=== PATIENT | male | born 1995 | race Caucasian/White ===

== ENCOUNTER 2018-04-30 06:54 | Emergency (ER) | payer SELFPAY ==
[2018-04-30 06:58] VITALS: BP 135/89; PULSE 110; RESP 18; TEMP 36.1; O2SAT 95
--- NOTE | 2018-04-30 07:02 | W.ED.GENAD ---
Discharge Plan Disposition Patient Disposition: STILL A PATIENT Condition: Stable Discharge Details Chief Complaint: GenMedical Clinical Impression: Influenza Primary Care Provider: Amelia Hester ED Provider: Everette Moon Home Meds and New Rx's Prescriptions: New oseltamivir [Tamiflu] 75 mg capsule 75 mg PO BID 5 Days Qty: 10 RF: 0 ondansetron 4 mg tablet,disintegrating 4 mg PO TID PRN (Reason: nausea and vomiting) 5 Days Qty: 30 RF: 0 No Action tramadol 50 MG tablet 50 mg PO QID PRN PRNQty: 20 RF: 0 sulfamethoxazole-trimethoprim 1 TAB tablet 1 ea PO BID Qty: 20 RF: 0 Discharge Instructions Instructions: Influenza (ED) Additional Instructions: follow up with your primary care provider if not better in 1-2 weeks if you feel you are more significantly more ill return to the emergency department for reevaluation Medical Decision Making <Feroz Fan MD - Last Filed: 04/30/18 07:30> 22-year-old male presents from home with 2-1/2 days of fever chills, cough, nausea and vomiting. He is slightly tachycardic on exam. Rhonchi appreciated at left base. Differential diagnosis includes gastroenteritis, influenza, pneumonitis. Patient IV access established, given fluid bolus, Zofran, screening laboratories with flu testing and referred for chest x-ray. Patient signed out to Dr Moon at change of shift, please see his note. <Everette Moon MD - Last Filed: 04/30/18 08:57> Imaging Data Radiologic Study: Attestation: I personally reviewed and interpreted this imaging study as follows: Imaging: X-Ray Radiologist's impression: no acute findings on my read and vrad read Lab Data Lab results reviewed: Yes I reviewed the patient's lab results. HPI <Ferzo Fan MD - Last Filed: 04/30/18 07:30> General Mode of arrival: ambulatory. Date/Time Provider Initiated Documentation: 04/30/18 06:57. Limitations to Documentation: no limitations. Information obtained by: patient. History of Present Illness 22 year old M presents to the emergency department with the chief complaint of Nausea, vomiting x3 days. Cough, described as moderate, Quality is described as other (cramping), and is localized to the abdomen. Patient reports no radiation. Patient started experiencing this day(s) No relieving factors improve symptom(s), Eating worsens symptoms . Patient notes cough, fever/chills, loss of appetite, malaise and nausea/vomiting. Patient did receive the following treatments prior to arrival, none Related Data Home Medications Medication Instructions Recorded Confirmed tramadol 50 mg PO QID PRN PRN #20 tab 03/04/15 03/16/15 sulfamethoxazole-trimethoprim 1 ea PO BID #20 tab 03/16/15 ondansetron 4 mg PO TID PRN 5 Days #30 tab 04/30/18 oseltamivir [Tamiflu] 75 mg PO BID 5 Days #10 cap 04/30/18 Previous Rx's Medication Instructions Recorded tramadol 50 mg PO QID PRN PRN #20 tab 03/04/15 sulfamethoxazole-trimethoprim 1 ea PO BID #20 tab 03/16/15 ondansetron 4 mg PO TID PRN 5 Days #30 tab 04/30/18 oseltamivir [Tamiflu] 75 mg PO BID 5 Days #10 cap 04/30/18 Allergies Allergy/AdvReac Type Severity Reaction Status Date / Time No Known Allergies Allergy Unverified 03/03/15 20:02 General Stated Complaint: GenMedical SALINA: 3 Review of Systems <Feroz Fan MD - Last Filed: 04/30/18 07:30> Review of Systems 8 systems reviewed and otherwise negative PFSH <Feroz Fan MD - Last Filed: 04/30/18 07:30> Social History Smoking/Tobacco Use Status: Current-Occasional Exam <Feroz Fan MD - Last Filed: 04/30/18 07:30> Narrative Exam Narrative: GEN: awake, alert, oriented 3. Pleasant, well groomed, interactive. HEAD: Normocephalic, atraumatic ENT: Mucous membranes dry, oropharynx unremarkable, External ear exam unremarkable EYES: PERRL, EOMI NECK: Full ROM, no ANNIKA, no menigismus CHEST/RESP: Nontender, clear to auscultation bilateral, rhonchi left base CARDIOVASCULAR: borderline tachycardia, no murmur, rub jaye. 2+ Rad pulse bilateral ABDOMEN: Soft, nontender, no mass. +Bowel sounds EXT: Full ROM, no edema, no rash Neuro: Grossly normal neurologic exam, conversant, interactive. Psych: Speech fluent, thoughts congruent, affect normal Course <Feroz Fan MD - Last Filed: 04/30/18 07:30> Vital Signs Temperature 36.1 C L 04/30/18 06:58 Pulse 110 H 04/30/18 06:58 Respiratory Rate 18 04/30/18 06:58 Blood Pressure 135/89 04/30/18 06:58 Pulse Oximetry 95 04/30/18 06:58 Temperature 36.1 C L 04/30/18 06:58 Temperature Source Temporal Artery Scan 04/30/18 06:58 Pulse 110 H 04/30/18 06:58 Respiratory Rate 18 04/30/18 06:58 Blood Pressure 135/89 04/30/18 06:58 Blood Pressure Position Sitting 04/30/18 06:58 Pulse Oximetry 95 04/30/18 06:58 Oxygen Delivery Method Room Air 04/30/18 06:58 Oxygen Flow Rate 0 04/30/18 06:58 Sign Out <Feroz Fan MD - Last Filed: 04/30/18 07:30> Sign Out Data: Sign Out Comment: Followup labs/fluids/XR Last updated by Feroz Fan MD at 04/30/18 07:41 Post-Handoff Eval: pt's labs positive for influenza, otherwise unremarkable. He did state he felt some shortness of breath which improved with a neb, had mild wheezing that has resolved now. His vital signs are normal, tolerating PO and is stable for d/c home. Return precautions given
--- NOTE | 2018-04-30 07:06 | ED.GENADUL_ITS ---
Discharge Plan Disposition Patient Disposition: STILL A PATIENT Condition: Stable Discharge Details Chief Complaint: GenMedical Clinical Impression: Influenza Primary Care Provider: Amelia Hester ED Provider: Everette Moon Home Meds and New Rx's Prescriptions: New oseltamivir [Tamiflu] 75 mg capsule 75 mg PO BID 5 Days Qty: 10 RF: 0 ondansetron 4 mg tablet,disintegrating 4 mg PO TID PRN (Reason: nausea and vomiting) 5 Days Qty: 30 RF: 0 No Action tramadol 50 MG tablet 50 mg PO QID PRN PRNQty: 20 RF: 0 sulfamethoxazole-trimethoprim 1 TAB tablet 1 ea PO BID Qty: 20 RF: 0 Discharge Instructions Instructions: Influenza (ED) Additional Instructions: follow up with your primary care provider if not better in 1-2 weeks if you feel you are more significantly more ill return to the emergency department for reevaluation Medical Decision Making <Feroz Fan MD - Last Filed: 04/30/18 07:30> 22-year-old male presents from home with 2-1/2 days of fever chills, cough, nausea and vomiting. He is slightly tachycardic on exam. Rhonchi appreciated at left base. Differential diagnosis includes gastroenteritis, influenza, pneumonitis. Patient IV access established, given fluid bolus, Zofran, screening laboratories with flu testing and referred for chest x-ray. Patient signed out to Dr Moon at change of shift, please see his note. <Everette Moon MD - Last Filed: 04/30/18 08:57> Imaging Data Radiologic Study: Attestation: I personally reviewed and interpreted this imaging study as follows: Imaging: X-Ray Radiologist's impression: no acute findings on my read and vrad read Lab Data Lab results reviewed: Yes I reviewed the patient's lab results. HPI <Feroz Fan MD - Last Filed: 04/30/18 07:30> General Mode of arrival: ambulatory . Date/Time Provider Initiated Documentation: 04/30/18 06:57 . Limitations to Documentation: no limitations . Information obtained by: patient . History of Present Illness 22 year old M presents to the emergency department with the chief complaint of Nausea, vomiting x3 days. Cough, described as moderate, Quality is described as other (cramping), and is localized to the abdomen. Patient reports no radiation. Patient started experiencing this day(s) No relieving factors improve symptom(s), Eating worsens symptoms . Patient notes cough, fever/chills, loss of appetite, malaise and nausea/vomiting. Patient did receive the following treatments prior to arrival, none Related Data Home Medications Medication Instructions Recorded Confirmed tramadol 50 mg PO QID PRN PRN #20 tab 03/04/15 03/16/15 sulfamethoxazole-trimethoprim 1 ea PO BID #20 tab 03/16/15 ondansetron 4 mg PO TID PRN 5 Days #30 tab 04/30/18 oseltamivir [Tamiflu] 75 mg PO BID 5 Days #10 cap 04/30/18 Previous Rx's Medication Instructions Recorded tramadol 50 mg PO QID PRN PRN #20 tab 03/04/15 sulfamethoxazole-trimethoprim 1 ea PO BID #20 tab 03/16/15 ondansetron 4 mg PO TID PRN 5 Days #30 tab 04/30/18 oseltamivir [Tamiflu] 75 mg PO BID 5 Days #10 cap 04/30/18 Allergies Allergy/AdvReac Type Severity Reaction Status Date / Time No Known Allergies Allergy Unverified 03/03/15 20:02 General Stated Complaint: GenMedical SALINA: 3 Review of Systems <Feroz Fan MD - Last Filed: 04/30/18 07:30> Review of Systems 8 systems reviewed and otherwise negative PFSH <Feroz Fan MD - Last Filed: 04/30/18 07:30> Social History Smoking/Tobacco Use Status: Current-Occasional Exam <Feroz Fan MD - Last Filed: 04/30/18 07:30> Narrative Exam Narrative: GEN: awake, alert, oriented 3. Pleasant, well groomed, interactive. HEAD: Normocephalic, atraumatic ENT: Mucous membranes dry, oropharynx unremarkable, External ear exam unremarkable EYES: PERRL, EOMI NECK: Full ROM, no ANNIKA, no menigismus CHEST/RESP: Nontender, clear to auscultation bilateral, rhonchi left base CARDIOVASCULAR: borderline tachycardia, no murmur, rub jaye. 2+ Rad pulse bilateral ABDOMEN: Soft, nontender, no mass. +Bowel sounds EXT: Full ROM, no edema, no rash Neuro: Grossly normal neurologic exam, conversant, interactive. Psych: Speech fluent, thoughts congruent, affect normal Course <Feroz Fan MD - Last Filed: 04/30/18 07:30> Vital Signs Temperature 36.1 C L 04/30/18 06:58 Pulse 110 H 04/30/18 06:58 Respiratory Rate 18 04/30/18 06:58 Blood Pressure 135/89 04/30/18 06:58 Pulse Oximetry 95 04/30/18 06:58 Temperature 36.1 C L 04/30/18 06:58 Temperature Source Temporal Artery Scan 04/30/18 06:58 Pulse 110 H 04/30/18 06:58 Respiratory Rate 18 04/30/18 06:58 Blood Pressure 135/89 04/30/18 06:58 Blood Pressure Position Sitting 04/30/18 06:58 Pulse Oximetry 95 04/30/18 06:58 Oxygen Delivery Method Room Air 04/30/18 06:58 Oxygen Flow Rate 0 04/30/18 06:58 Sign Out <Feroz Fan MD - Last Filed: 04/30/18 07:30> Sign Out Data: Sign Out Comment: Followup labs/fluids/XR Last updated by Feroz Fan MD at 04/30/18 07:41 Post-Handoff Eval: pt's labs positive for influenza, otherwise unremarkable. He did state he felt some shortness of breath which improved with a neb, had mild wheezing that has resolved now. His vital signs are normal, tolerating PO and is stable for d/c home. Return precautions given
--- NOTE | 2018-04-30 07:09 | DI.RAD_ITS ---
SYMPTOM/DIAGNOSIS: COUGH, LT BASE RHONCHI PA AND LATERAL CHEST: Comparison is made with 11/07/14. The heart size is normal. The lungs are well inflated and clear. No infiltrate or effusion is seen. IMPRESSION: Negative chest xray.
[2018-04-30] MEDS: Ondansetron 4 MG/2 ML VIAL IVP (07:24)
[2018-04-30] MEDS: Normal Saline 1,000 ML 1000 ML IV (07:24)
[2018-04-30 07:27] LABS: Abs Immature Grans 0.02 k/cumm (0.0-0.09); Absolute Basophil Count 0.02 k/cumm (0.0-0.2); Absolute Eosinophil Count 0.02 k/cumm (0.0-0.7); Absolute Lymphocyte Count 0.93 k/cumm (1.2-3.4); Absolute Monocyte Count 0.68 k/cumm (0.11-0.7); Absolute Neutrophil Count 5.61 k/cumm (1.2-6.7); Basophils % 0.3; Eosinophils % 0.3; HCT 45.6 % (40.0-50.0); HGB 15.4 g/dL (13.5-17.5); Immature Grans % 0.3; Lymphocytes % 12.8; Mean Corp. HGB Concentration 33.8 g/dL (32.0-36.0); Mean Corpuscular Hemoglobin 25.5 pg (27.0-33.0); Mean Corpuscular Volume 75.4 fL (80-95); Mean Platelet Volume 10.5 fL (8.0-11.0); Monocytes % 9.3; Platelet Count 138 x1000/uL (130-400); RBC 6.05 m/cumm (4.50-6.00); RBC Distribution Width 13.8 % (11.8-14.1); White Blood Cell Count 7.28 k/cumm (4.4-10.8)
[2018-04-30 07:41] LABS: ALT 18 U/L (12-78); AST 23 U/L (15-37); Alkaline Phosphatase 71 U/L (46-116); Anion Gap 13.7 mmol/L (3-11); BUN 17 mg/dL (7-18); Bilirubin, Total 0.5 mg/dL (0.2-1.0); CO2 26.3 mmol/L (21.0-32.0); CREATININE 1.18 mg/dL (0.70-1.30); Chloride 97 mmol/L (98-107); Glucose 99 mg/dL (70-100); Potassium 3.5 mmol/L (3.5-5.1); Sodium 137 mmol/L (136-145)
[2018-04-30 07:43] VITALS: BP 119/60; PULSE 96; RESP 18; TEMP 37.4; O2SAT 96
[2018-04-30] MEDS: Albuterol 2.5 MG/3 ML INH SOLN VIAL UPD (08:22)
[2018-04-30] MEDS: Oseltamivir 75 MG CAP PO (08:22)
[2018-04-30] MEDS: Prochlorperazine 10 MG/2 ML VIAL IVP (08:22)
--- NOTE | 2018-04-30 08:25 | DI.VRAD_ITS ---
EXAM: XR Chest, 2 Views EXAM DATE/TIME: 04/30/2018 7:12 AM CLINICAL HISTORY: 22 years old, male; Signs and symptoms; Other: Left base rhonchi, cough; Patient HX: PT unable to raise arms for lateral TECHNIQUE: XR of the chest, 2 views. COMPARISON: CR ABD FLAT UPRIGHT PA CHEST 11/07/2014 3:07 PM (report not provided) FINDINGS: Lungs: Unremarkable. No consolidation. Pleural space: Unremarkable. No pleural effusion. No pneumothorax. Heart/Mediastinum: Unremarkable. No cardiomegaly. Bones/joints: Unremarkable. IMPRESSION: No acute findings. Dictated and Authenticated by: Everette Salmeron MD. Ordering:SILVESTRE Redman MD
--- NOTE | 2018-04-30 08:45 | NUR.NOTE ---
Nursing Note: Pt sleepy after medications. no noted vomiting. encouraged to take small sips of fluid, neb tx given as ordered. will continue to monitor.
== END 2018-04-30 09:04 | disposition still patient (30) ==
PROVIDERS: Emergency Medicine; Emergency Provider Emergency Medicine; PCP Nurse Practitioner Family
DX: J10.2 Influenza due to other identified influenza virus with gastrointestinal manifestations (principal)
CPT/HCPCS: 36415; 80053; 87449; 96361; 96374; 96375; 99284; 71046; 85025; J0780; J2405; J7613

== ENCOUNTER 2018-12-25 21:30 | Emergency (ER) | payer MEDICAID, SELFPAY ==
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
[2018-12-25 21:36] VITALS: BP 139/93; PULSE 75; RESP 16; TEMP 36.6; O2SAT 96
--- NOTE | 2018-12-25 21:39 | DI.RAD_ITS ---
SYMPTOM/DIAGNOSIS: TRAUMA LEFT HAND: 12/25 Three views were obtained. No fracture is seen. Bony alignment appears within normal limits.
--- NOTE | 2018-12-25 22:43 | DI.VRAD_ITS ---
EXAM: XR Left Hand EXAM DATE/TIME: 12/25/2018 9:40 PM CLINICAL HISTORY: 22 years old, male; Pain; Hand; Left TECHNIQUE: Imaging protocol: XR Left hand. Views: 3 or more views. COMPARISON: No relevant prior studies available. FINDINGS: Bones/joints: No fractures. Distal radioulnar alignment is normal. No blastic or lytic lesions. No periostitis or osteolysis. Soft tissues: No gross erosive changes. No gross soft tissue abnormalities. No radiopaque foreign bodies. Other findings: Carpal relationships are normal. IMPRESSION: No acute findings. Dictated and Authenticated by: Dez Loo MD. Ordering:SHERINE Adorno MD
== END 2018-12-25 22:55 | disposition home or self-care (01) ==
PROVIDERS: Emergency Provider Emergency Medicine; PCP Nurse Practitioner Family
DX: S60.222A Contusion of left hand, initial encounter (principal); W22.02XA Walked into lamppost, initial encounter
CPT/HCPCS: 99283; 73130

== ENCOUNTER 2019-04-15 12:07 | Emergency (ER) | payer MEDICAID, SELFPAY ==
[2019-04-15 12:38] VITALS: BP 140/84; PULSE 72; RESP 20; TEMP 36.5; O2SAT 98
--- NOTE | 2019-04-15 14:31 | ED.GENADUL_ITS ---
Discharge Plan Disposition Patient Disposition: HOME Condition: Good Discharge Details Chief Complaint: Orthopedic Clinical Impression: Patellar tendinitis Primary Care Provider: Dez Gaming ED Provider: [place] Home Meds and New Rx's Prescriptions: Continued ibuprofen 200 mg tablet 600 mg PO Q6H PRN (Reason: pain) Qty: 30 RF: 0 Discharge Instructions Instructions: Tendinitis (ED) Additional Instructions: Encourage rest, ice, elevation. Tylenol and/or ibuprofen as needed for discomfort. Please continue with hinged knee brace for pain persist. Please follow-up with primary care in the next 1 to 2 weeks for reevaluation if pain persist. If you develop fever/chills, redness of the skin, swelling or other new/worsening symptoms please seek care urgently once again. Otherwise, please avoid activities that cause increased but you may advance activities as tolerated. Referrals: Dez Gaming [Primary Care Provider] - Discharge Data Discharge Date/Time-TO BE ENTERED AT DEPARTURE: 04/15/19 16:00 Medical Decision Making Patient 23-year-old male presented with chief complaint of right knee pain. He reports the pain began yesterday. Reports insidious onset. Denies any aggravating activities. Reports that his pain is primarily along the superior aspect of the patella. Denies any previous trauma or surgeries to this knee. States that since the onset of discomfort, he has had 2 ambulate with antalgic gait. Denies any altered sensation. No fevers or chills. Is not noted erythema. On exam, patient is resting comfortably. He appears nontoxic. Exam of the knee significant for tenderness superior to the patella at the area of the patellar tendon. However, patient has good extension against resistance. No evidence of weakness or rupture. No palpable defect to the tendon. He does have pain over the patella itself. Plan for imaging to rule out bony etiology. Patient has full range of motion, ligamentously intact. No effusion. No erythema or warmth. Imaging reviewed by radiologist: FINDINGS: Four views were obtained. No bony or soft tissue abnormality seen. Discussed these findings with the patient. Advised that the location of pain is most consistent with patellar tendinitis. Encourage rest, ice, elevation. Tylenol and ibuprofen as needed for discomfort. As patient is having such discomfort with ambulation, we will fit him with a hinged knee brace. Was able to ambulate well out of the department with the brace in place. Advise follow- up with primary care if not improving in the next 1 to 2 weeks. He was given strict return cautions. All questions and concerns were addressed he is in agreement this plan. HPI General Mode of arrival: ambulatory . Date/Time Provider Initiated Documentation: 04/15/19 13:21 . Limitations to Documentation: no limitations . Information obtained by: patient and RN notes reviewed . History of Present Illness 23 year old M presents to the emergency department with the chief complaint of right knee pain, described as severe, Quality is described as aching, and is localized to the right and lower extremity. Patient reports no radiation. Patient started experiencing this day(s) (1) and it has been constant. Immobilization improves symptom(s), Movement worsens symptoms . Patient notes no other symptoms.. Patient did receive the following treatments prior to arrival, none Related Data Home Medications Medication Instructions Recorded Confirmed ibuprofen 600 mg PO Q6H PRN #30 tab 12/25/18 04/15/19 Previous Rx's Medication Instructions Recorded ibuprofen 600 mg PO Q6H PRN #30 tab 12/25/18 Allergies Allergy/AdvReac Type Severity Reaction Status Date / Time No Known Allergies Allergy Unverified 04/15/19 12:39 General Stated Complaint: Orthopedic SALINA: 3 Review of Systems Constitutional Constitutional: Reports as per HPI, Denies chills, Denies fever(s), Denies headache(s) and Denies weakness ENT Ears, Nose, Mouth, and Throat: Denies headache(s) Cardiovascular Cardiovascular: Reports as per HPI Respiratory Respiratory: Reports as per HPI and Denies cough Musculoskeletal Musculoskeletal: Reports as per HPI and Denies tingling Integumentary/Breasts Skin/Breast: Reports as per HPI, Denies rash and Denies wounds Neurologic Neurologic: Reports as per HPI, Denies headache(s), Denies tingling, Denies paresthesias and Denies weakness [facility] Social History Smoking/Tobacco Use Status: Current every day Alcohol Intake: current Alcohol Intake frequency: holidays/special occasions only Drug use: Never Substance use type: does not use Do you feel safe at home: Yes Do you feel safe in your relationship?: Yes Exam Const General: cooperative, healthy appearing, comfortable, no acute distress, well developed and well groomed Nutritional Appearance: average body habitus and well nourished Orientation: alert and awake Resp Effort & Inspection: normal respiratory effort, able to speak in complete sentences and no respiratory distress Cardio Rate: regular rate Rhythm: regular rhythm Skin General skin exam: no rashes or lesions noted Lesions: no lesions Rashes: no rashes Trauma: no lacerations or abrasions Neuro General: alert and awake Cognition: normal cognition Speech: speech normal Gait: antalgic Motor: muscle tone normal throughout Sensory Exam: no sensory deficits noted Extrem Right lower extremity: normal to inspection, full ROM, normal capillary refill, no joint enlargement, hip/thigh Details: normal to inspection and normal ROM; no tenderness and no swelling, knee Details: normal to inspection, tenderness Location: of the patella Details: superiorly, normal ROM and knee ligament exam normal Details: anterior drawer test normal, posterior drawer test normal, valgus stress test normal and varus stress test normal; no pain with axial loading; no swelling, no abrasions, no lacerations, no ecchymosis, no crepitus, no deformity and no unusual warmth, lower leg Details: normal to inspection and no edema; no tenderness, no localized swelling and no palpable cords, ankle Details: normal to inspection and foot (2+ distal pulses); no edema Left lower extremity: normal to inspection, full ROM and normal capillary refill Psych Appearance: grossly normal and well kempt Mental Status: mental status grossly normal Speech and Movement: speech and movement normal Course Vital Signs Vital signs: Vital Signs Temperature 36.5 C 04/15/19 12:38 Pulse 72 04/15/19 12:38 Respiratory Rate 20 04/15/19 12:38 Blood Pressure 140/84 04/15/19 12:38 Pulse Oximetry 98 04/15/19 12:38 Temperature 36.5 C 04/15/19 12:38 Temperature Source Temporal Artery Scan 04/15/19 12:38 Pulse 72 04/15/19 12:38 Respiratory Rate 20 04/15/19 12:38 Blood Pressure 140/84 04/15/19 12:38 Pulse Oximetry 98 04/15/19 12:38 Pain Level 10 04/15/19 12:38
[2019-04-15] MEDS: Acetaminophen 500 MG TAB 1000 MG PO (15:34)
[2019-04-15] MEDS: Ibuprofen 600 MG TAB PO (15:34)
--- NOTE | 2019-04-15 15:52 | DI.RAD_ITS ---
EXAM: XR KNEE RT 4V AP,LAT,CASANDRA,PAT CLINICAL HISTORY: patellar pain TECHNIQUE: COMPARISON: LEFT KNEE 3 VIEW COMPLETE from 10/15/2014 FINDINGS: Four views were obtained. No bony or soft tissue abnormality seen. IMPRESSION:
--- NOTE | 2019-04-15 16:00 | NUR.NOTE ---
patient received discharge and follow up instruciton per MD order. patient refused dental work Nursing Note:
--- NOTE | 2019-04-15 16:11 | NUR.NOTE ---
patiient received splint, discharge and follow up instruciton per MD orde rNursing Note:
== END 2019-04-15 16:00 | disposition home or self-care (01) ==
PROVIDERS: Emergency Provider Physician Assistant; PCP Family Medicine
DX: M76.51 Patellar tendinitis, right knee (principal)
CPT/HCPCS: 29505; 99284; 73564; 99283; L1810

== ENCOUNTER 2022-02-02 13:42 | Emergency (ER) | payer MEDICAID, SELFPAY ==
--- NOTE | 2022-02-02 13:45 | DI.RAD_ITS ---
Exam(s) XR FOOT RT COMPLETE EXAM: XR FOOT RT COMPLETE CLINICAL HISTORY: pain after repetitive motion TECHNIQUE: COMPARISON: No exams were available for comparison FINDINGS: Three views were obtained. No bony or soft tissue abnormality seen. IMPRESSION: RADIATION DOSE DELIVERED: Total DLP
[2022-02-02 13:47] VITALS: BP 139/75; PULSE 67; RESP 18; TEMP 36.2; O2SAT 99
--- NOTE | 2022-02-02 14:16 | ED.GENADUL_ITS ---
Discharge Plan Disposition Patient Disposition: HOME Condition: Stable Discharge Details Clinical Impression: Achilles tendinitis, right leg Primary Care Provider: [facility] ED Provider: Feroz Fan Home Meds and New Rx's Prescriptions: Continued ibuprofen 200 mg tablet 600 mg PO Q6H PRN (Reason: pain) Qty: 30 0RF Discharge Instructions Instructions: Tendinitis (ED) Additional Instructions: Crutches as needed and then may begin crutch walking. Wear walking boot 7 to 10 days time as needed for comfort. You will benefit from wearing at night as it will hold your Achilles tendon in stretch position. Ibuprofen as needed for discomfort. Return if you develop a fever, rash, worsening pain, or any other acute concerns. Medical Decision Making 26-year-old male who does not currently have a car. He walked 40 miles to be with his father in [place] this weekend and now has right foot and heel pain that is worse with ambulation. He is tender in the heel and distal Achilles tendon. Referred for x-ray to rule out underlying fracture or bony injury. The Xray does not reveal underlying bony injury. I feel the patient will benefit from immobilization in a walking boot. The dorsiflexion at night will help to stretch and ease discomfort from his Achilles tendon. Discussed with him home management HPI General Mode of arrival: ambulatory . Date/Time Provider Initiated Documentation: 02/02/22 13:55 . Limitations to Documentation: no limitations . Information obtained by: patient . History of Present Illness 26 year old M presents to the emergency department with the chief complaint of Right heel pain after walking 45 miles, described as moderate, Quality is described as dull and constant, and is localized to the right and lower extremity. Patient reports no radiation. Patient started experiencing this hour(s) and it has been constant. Rest improves symptom(s), Movement worsens symptoms . Patient notes denies fever/chills and rash. Patient did receive the following treatments prior to arrival, none Related Data Home Medications Medication Instructions Recorded Confirmed ibuprofen 200 mg tablet 600 mg PO Q6H PRN pain #30 tabs 12/25/18 02/02/22 Previous Rx's Medication Instructions Recorded ibuprofen 200 mg tablet 600 mg PO Q6H PRN pain #30 tabs 12/25/18 Allergies Allergy/AdvReac Type Severity Reaction Status Date / Time No Known Allergies Allergy Unverified 04/15/19 12:39 General Stated Complaint: Orthopedic SALINA: 4 Review of Systems Narrative: No open sores or lesions. No direct traumatic injury. 4 systems were reviewed and otherwise PFSH All Active Problems (Updated 02/02/22 @ 14:51 by Feroz Fan MD) Achilles tendinitis, right leg (Acute) Social History Smoking/Tobacco Use Status: Current every day Tobacco Type: cigarettes Smoking risk assessment performed?: Yes Alcohol Intake: never Drug use: Never Substance use type: does not use Do you feel safe at home: Yes Do you feel safe in your relationship?: Yes Exam Narrative Exam Narrative: GEN: awake, alert, oriented 3. Pleasant, well groomed, interactive. HEAD: Normocephalic, atraumatic EYES: PERRL, EOMI NECK: Full ROM, no ANNIKA, no menigismus CHEST/RESP: No respiratory distress EXT: Full ROM, the right heel and distal Achilles tendon are tender to palpation Neuro: Grossly normal neurologic exam, conversant, interactive. Psych: Speech fluent, thoughts congruent, affect normal Course Vital Signs Vital signs: Vital Signs Temperature 36.2 C L 02/02/22 13:47 Pulse 67 02/02/22 13:47 Respiratory Rate 18 02/02/22 13:47 Blood Pressure 139/75 02/02/22 13:47 Pulse Oximetry 99 02/02/22 13:47 Temperature 36.2 C L 02/02/22 13:47 Temperature Source Temporal Artery Scan 02/02/22 13:47 Pulse 67 02/02/22 13:47 Respiratory Rate 18 02/02/22 13:47 Blood Pressure 139/75 02/02/22 13:47 Blood Pressure Position Sitting 02/02/22 13:47 Pulse Oximetry 99 02/02/22 13:47 Oxygen Delivery Method Room Air 02/02/22 13:47 Oxygen Flow Rate 0 02/02/22 13:47 Pain Level 5 02/02/22 14:10
== END 2022-02-02 15:32 | disposition home or self-care (01) ==
PROVIDERS: Emergency Provider Emergency Medicine; PCP Family Medicine
DX: M76.61 Achilles tendinitis, right leg (principal)
CPT/HCPCS: 99283; 73630; 99282